=== PATIENT | male | born 1935 | race Caucasian/White ===

== ENCOUNTER 2018-05-25 12:34 | Emergency (ER) | payer MEDICARE ==
[2018-05-25 14:01] LABS: Clarity CLOUDY (Clear)
[2018-05-25 14:03] LABS: Hyaline Casts/LPF 0-3 HYALINE CAST LPF (0-3 Hyaline); Pathc Cast-AUWi Flag 0.14 (0-2.49); RBC/HPF 21-50 HPF (0-3); Squamous Epithelial 0-3 HPF (0-3)
[2018-05-25 14:04] LABS: Leukocyte Unable to Interpret (Negative); Nitrite Unable to Interpret (Negative); Specific Gravity, Urine 1.007 (1.002-1.036)
[2018-05-25 14:05] LABS: Bilirubin Unable to Interpret (Negative); Blood, Urine Unable to Interpret (Negative); Glucose, Urine (Dipstick) Unable to Interpret mg/dL (Negative); Protein, Urine (Dipstick) 100 mg/dL (Neg-Trace); Urobilinogen UNABLE TO INTERPRET mg/dL (0.2-1.0)
[2018-05-25 14:07] LABS: Bacteria/HPF 3+ HPF (None Seen)
[2018-05-25 14:10] LABS: #Eosinphils 0.1 thou/uL (0.0-0.7); #Monocytes 0.6 thou/uL (0.11-0.59); #Neutrophils 10.5 thou/uL (1.40-6.50); %Basophils 0.1 % (0.0-1.0); %Eosinophils 0.5 % (0.0-10.0); %Lymphocytes 7.8 % (21.0-51.0); %Monocytes 5.3 % (0.0-10.0); %Neutrophils 86.3 % (42.0-75.0); Hemoglobin 13.8 g/dL (14.0-18.0); Mean Corpuscular HGB CONC 34.5 g/dL (32.0-36.0); Mean Corpuscular Hemoglobin 33.4 pg (27.0-31.0); Mean Corpuscular Volume 96.7 fL (78.0-98.0); Mean Platelet Volume 7.8 fL (7.4-10.4); Platelet Count 106 thou/uL (130-400); RBC Distribution Width 12.6 % (11.5-14.5); Red Blood Cell (RBC) Count 4.15 mill/uL (4.70-6.10); White Blood Cell (WBC) Count 12.2 thou/uL (4.8-10.8)
[2018-05-25 14:14] LABS: INR-International Normal Ratio 2.4; Prothrombin Time 26.4 SEC (12.0-14.7)
[2018-05-25 14:28] LABS: Anion Gap 16 mmol/L (10-20); BUN (Urea Nitrogen) 19 mg/dL (8.4-25.7); Calc. Creatinine Clearance 0 mL/min (70-130); Calcium 9.8 mg/dL (7.8-10.44); Carbon Dioxide 21 mmol/L (23-31); Chloride 103 mmol/L (98-107); Estimated GFR-MDRD Greater than 90; Glucose 117 mg/dL (83-110); Potassium 4.2 mmol/L (3.5-5.1); Sodium 136 mmol/L (136-145)
== END 2018-05-25 16:15 | disposition home or self-care (01) ==
LOC: ERS 12:34
DX: R31.9 Hematuria, unspecified (principal); M10.9 Gout, unspecified; I48.91 Unspecified atrial fibrillation; E66.9 Obesity, unspecified; E78.5 Hyperlipidemia, unspecified; I10 Essential (primary) hypertension; Z79.899 Other long term (current) drug therapy; Z79.01 Long term (current) use of anticoagulants
CPT/HCPCS: 36415; 80048; 81003; 81015; 85025; 85610; 99283

== ENCOUNTER 2018-08-06 12:25 | Outpatient (CLI) | payer MEDICARE ==
[~2018-08-06 12:25] MED LIST: Iopamidol 370 76% 100 ML VIAL ONE
[2018-08-06 13:42] LABS: Estimated GFR-MDRD - POC Greater than 90
--- NOTE | 2018-08-06 15:51 | CT ---
NECK CT ANGIOGRAM INCLUDING 3D RENDERING: Date: 08/06/18 HISTORY: 83-year-old male with history of bruit on right carotid artery. FINDINGS: At the origin of the right subclavian artery, there is a prominent calcified plaque with plaque with approximately 60% stenosis using NASCET criteria. There is approximately 50% stenosis at the origin o f the right ICA. Just cranial to this, there is a prominent calcified plaque with approximately 70% s tenosis of the right ICA at level of this calcified plaque. No significant left-sided carotid artery stenosis. Vertebral arteries demonstrate no evidence for focal stenosis or occlusion. IMPRESSION: Densely calcified plaque in the proximal right ICA with approximately 70% stenosis. Approximately 50% stenosis at the origin of the right ICA. Approximately 60% stenosis of the origin of the right subcl fel[place] artery. Stenoses are estimated using NASCET criteria. No significant left carotid artery stenos is. No significant vertebral artery stenosis. POS: ERIN
== END 2018-08-06 12:26 | disposition home or self-care (01) ==
LOC: BICCT 12:25
PROVIDERS: ATTEND Internal Medicine Cardiovascular Disease
DX: R09.89 Other specified symptoms and signs involving the circulatory and respiratory systems (principal); I65.21 Occlusion and stenosis of right carotid artery; I70.8 Atherosclerosis of other arteries
CPT/HCPCS: 70498; 82565

== ENCOUNTER 2020-03-20 07:11 | Outpatient (CLI) | payer MEDICARE, OTHER ==
[2020-03-21 12:15] LABS: SARS-CoV-2 MS2 Positive; SARS-CoV-2 N Gene Negative; SARS-CoV-2 S Gene Negative; SARS-CoV-2 orf1ab Negative
== END 2020-03-20 07:12 | disposition home or self-care (01) ==
LOC: LABBT 07:11
PROVIDERS: ATTEND Internal Medicine Gastroenterology
DX: Z01.812 Encounter for preprocedural laboratory examination (principal); Z11.59 Encounter for screening for other viral diseases; K92.1 Melena; R19.07 Generalized intra-abdominal and pelvic swelling, mass and lump; Z86.010 Personal history of colon polyps
CPT/HCPCS: 87635; U0003

== ENCOUNTER 2020-03-23 08:56 | Day surgery (SDC) | payer MEDICARE ==
[2020-03-19 13:21] VITALS: BMI 31.1
[2020-03-23] MEDS ORDERED: PROPOFOL 200 MG/20 ML VIAL ONE (11:16)
[2020-03-23] MEDS ORDERED: Glycopyrrolate 0.2 MG/ML 5 ML SYRINGE ONE ×2 (11:16→13:40)
[2020-03-23] MEDS ORDERED: Ketamine 50 MG/ML (10ML VIAL) ONE (11:28)
--- NOTE | 2020-03-23 14:22 | OP ---
DATE OF PROCEDURE: 03/23/2020 PROCEDURES PERFORMED: Esophagogastroduodenoscopy and colonoscopy. PREPROCEDURE DIAGNOSES: 1. History of intermittent rectal bleeding. 2. History of polyps. 3. History of chronic Coumadin use. 4. History of prostate cancer with previous radiation therapy. 5. History of reflux. POSTPROCEDURE DIAGNOSES: 1. EGD normal except for sliding-type hiatal hernia 4 cm in size. No evidence of malignancies or polyps or ulcers or erosions or bleeding vessels. 2. Colonoscopy notable for 8 polyps, removed from the ascending and descending colon with a cold snare polypectomy. These did not appear to be lesions that have bled recently. 3. 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 Cautery with argon plasma coagulation was successful in ablating these rectal telangiectasias related to his previous radiation therapy. RECOMMENDATIONS: 1. Resume Coumadin in 3 days, that will be , today is Monday. 2. Await histopathology. I told him I will give him a call as he lives in assisted living in [place], we will get him his results later this week or early next week. ANESTHESIA: TIVA. DESCRIPTION OF PROCEDURE: After the patient was informed of the risks, benefits, and possible complications of endoscopy including perforation, reaction to medication, and aspiration, informed consent was obtained. The patient was brought to the endoscopy suite, where he was sedated in gradual fashion. Once he was comfortable, a bite block was placed inside his orifice. The endoscope was advanced into the esophagus, stomach, into the second and third portions of the duodenum and slowly removed. There was good visualization of the mucosa. The esophagus was normal, stomach was notable for a 4 cm sliding-type hiatal hernia. Retroflexed views were normal and the stomach was normal in forward views, there was normal distention. The duodenum was entered, followed by second and third portions, appeared normal. Scope was removed. The patient turned to the room and a rectal exam was performed, which was normal. The endoscope was advanced through the anal canal, from the colon to the cecum, which was identified by the appendiceal orifice and the ileocecal valve. Four polyps were noted in the ascending and transverse colon and four in the descending colon, and all removed by cold snare polypectomy and submitted to Pathology. There were rectal telangiectasias in the rectum. These were cauterized with an argon plasma coagulation. Retroflexed views were otherwise normal. The scope was removed. The patient tolerated the procedure well. Job ID: [id number]
== END 2020-03-23 14:02 | disposition home or self-care (01) ==
LOC: SDC 08:56
PROVIDERS: ATTEND Internal Medicine Gastroenterology
PROC: 0DJ08ZZ Inspection of Upper Intestinal Tract, Via Natural or Artificial Opening Endoscopic (ICD-10-PCS; principal; 2020-03-23)
PROC: 0DBK8ZX Excision of Ascending Colon, Via Natural or Artificial Opening Endoscopic, Diagnostic (ICD-10-PCS; 2020-03-23)
PROC: 0DBM8ZX Excision of Descending Colon, Via Natural or Artificial Opening Endoscopic, Diagnostic (ICD-10-PCS; 2020-03-23)
PROC: 0D5P8ZZ Destruction of Rectum, Via Natural or Artificial Opening Endoscopic (ICD-10-PCS; 2020-03-23)
DX: K62.7 Radiation proctitis (principal); K62.5 Hemorrhage of anus and rectum; D12.2 Benign neoplasm of ascending colon; D12.4 Benign neoplasm of descending colon; K44.9 Diaphragmatic hernia without obstruction or gangrene; I11.0 Hypertensive heart disease with heart failure; I50.9 Heart failure, unspecified; I48.91 Unspecified atrial fibrillation; M10.9 Gout, unspecified; E78.00 Pure hypercholesterolemia, unspecified; Z85.46 Personal history of malignant neoplasm of prostate; Z86.010 Personal history of colon polyps; Z87.891 Personal history of nicotine dependence; Z79.01 Long term (current) use of anticoagulants; Z79.899 Other long term (current) drug therapy; Z95.0 Presence of cardiac pacemaker; Y84.2 Radiological procedure and radiotherapy as the cause of abnormal reaction of the patient, or of later complication, without mention of misadventure at the time of the procedure
CPT/HCPCS: 88305; J2704

== ENCOUNTER 2021-03-15 09:21 | Outpatient (CLI) | payer MEDICARE | END 2021-03-15 09:22 | disposition home or self-care (01) | LOC: NM 09:21 | PROVIDERS: ATTEND Urology | DX: C61 Malignant neoplasm of prostate (principal); C79.51 Secondary malignant neoplasm of bone | CPT/HCPCS: 78306; A9503 ==